=== PATIENT | male | born 1995 | race African-American/Black ===

== ENCOUNTER 2022-03-12 13:25 | Emergency (ER) | payer OTHER ==
[2022-03-12] MEDS ORDERED: Cephalexin 250 MG CAP ONE (14:38)
== END 2022-03-12 14:46 | disposition home or self-care (01) ==
LOC: NAV ERS 13:25
DX: L03.312 Cellulitis of back [any part except buttock and flank] (principal)
CPT/HCPCS: 99282

== ENCOUNTER 2022-03-14 13:04 | Emergency (ER) | payer OTHER ==
[2022-03-14] MEDS ORDERED: Lidocaine 1% (PF) 30 ML VIAL ONE (13:42)
== END 2022-03-14 14:31 | disposition home or self-care (01) ==
LOC: NAV ERS 13:04
DX: L05.01 Pilonidal cyst with abscess (principal)
CPT/HCPCS: 10080; 87070; 87205; J2001

== ENCOUNTER 2023-05-25 13:53 | Emergency (ER) | payer OTHER | END 2023-05-25 15:20 | disposition home or self-care (01) | LOC: NAV ERS 13:53 | DX: L05.01 Pilonidal cyst with abscess (principal) | CPT/HCPCS: 99282 ==